=== PATIENT | male | born 1955 | race Caucasian/White ===

== ENCOUNTER → 2016-08-11 | Outpatient (CLI) | payer OTHER ==
--- NOTE | 2016-08-11 15:13 | REP ---
MR CERVICAL SPINE WITHOUT AND WITH CONTRAST: HISTORY: Paresthesias. Contrast: ProHance 12 mL. A small left paracentral and intraforaminal disc protrusion with associated osteophyte formation is present at the C2-3 level. There is minimal effacement of the thecal sac without spinal cord compression. Bilateral uncinate process and left facet hypertrophy are present. These findings produce mild and moderate narrowing of the right and left C2 neural foramina respectively. A disc bulge with associated osteophyte formation is present at the C3-4 level. There is moderate effacement of the thecal sac without spinal cord compression. Bilateral uncinate process hypertrophy is present. This produces moderate narrowing of the C3 neural foramina. A disc bulge with associated osteophyte formation is present at the C4-5 level. There is moderate spinal cord compression. Bilateral uncinate process and left facet hypertrophy are present. These findings produce moderate and severe narrowing of the right and left C4 neural foramina respectively. A disc bulge with associated osteophyte formation is present at the C5-6 level. There is moderate spinal cord compression. Bilateral uncinate process hypertrophy is present. This produces severe narrowing of the C5 neural foramina. A disc bulge and small left paracentral disc protrusion with associated osteophyte formation are present at the C6-7 level. There is moderate effacement of the thecal sac without spinal cord compression. Bilateral uncinate process hypertrophy is present. This produces moderate narrowing of the C6 neural foramina. A disc bulge and small left paracentral and intraforaminal disc protrusion with associated osteophyte formation are present at the C7-T1 level. There is mild effacement of the thecal sac without spinal cord compression. Bilateral uncinate process hypertrophy is present. There is mild and moderate narrowing of the right and left C7 neural foramina respectively. A disc bulge is present at the T1-2 level. There is minimal effacement of the thecal sac without spinal cord compression. The T1 neural foramina are patent on sagittal images. There is no other disc bulge or herniation. The remaining neural foramina are patent. The spinal cord is normal I signal intensity. There is no intradural extramedullary lesion. The C3-4 through C7-T1 intervertebral discs are decreased in height consistent with disc degeneration. Normal signal intensity is present in the cervical vertebral bodies. IMPRESSION: There is cervical spondylosis at the C2-3 through C7-T1 levels most significant at the C4-5 and C5-6 levels where there is moderate spinal cord compression. Signed by Adin Espana MD 08/11/2016 03:17 P
== END ==
LOC: M RAD 12:47
PROVIDERS: ATTEND Orthopaedic Surgery
DX: M43.02 Spondylolysis, cervical region (principal); R20.0 Anesthesia of skin
CPT/HCPCS: 72156; A9576

== ENCOUNTER → 2016-11-24 | Outpatient (REF) | payer OTHER ==
[2016-11-24 13:11] LABS: BASO % 0.6 % (0.0-1.0); EOS # 0.5 K/mm3 (0.0-0.50); EOS % 8.3 % (0.0-3.0); LARGE UNSTAINED CELL # 0.2 K/mm3 (0.0-0.4); LARGE UNSTAINED CELL % 3.4 % (0.0-4.0); LYMPH # 1.6 K/mm3 (1.5-4.5); LYMPH % 26.5 % (24.0-44.0); MEAN CORPUSCULAR HEMOGLOBIN 30.6 pg (27.0-33.0); MEAN CORPUSCULAR HGB CONC 32.6 g/dl (32.0-36.5); MEAN CORPUSCULAR VOLUME 93.8 fl (80.0-96.0); MONO # 0.3 K/mm3 (0.0-0.8); MONO % 5.1 % (0.0-5.0); NEUTROPHILS # 3.4 K/mm3 (1.8-7.7); NEUTROPHILS % 56.1 % (36.0-66.0); PLATELET COUNT, AUTOMATED 206 k/mm3 (150-450); RED CELL DISTRIBUTION WIDTH 14.6 % (11.5-14.5); WHITE BLOOD COUNT 6.1 K/mm3 (4.0-10.0)
[2016-11-24 13:25] LABS: FOLATE 9.6 NG/ML; VITAMIN B12 LEVEL 318 PG/ML
[2016-11-24 13:30] LABS: ALBUMIN 4.1 GM/DL (3.2-5.2); ALBUMIN/GLOBULIN RATIO 1.41 (1.00-1.93); ALKALINE PHOSPHATASE 66 U/L (45-117); ALT/SGPT 14 U/L (12-78); ANION GAP 8 MEQ/L (8-16); AST/SGOT 16 U/L (15-37); BILIRUBIN,TOTAL 0.3 MG/DL (0.2-1.0); BLOOD UREA NITROGEN 15 MG/DL (7-18); CALCIUM LEVEL 8.5 MG/DL (8.5-10.1); CARBON DIOXIDE LEVEL 28 MEQ/L (21-32); CHLORIDE LEVEL 105 MEQ/L (98-107); CHOLESTEROL LEVEL 233 MG/DL (<200); CREATININE FOR GFR 0.97 MG/DL (0.70-1.30); FREE T4 1.46 NG/DL (0.76-1.46); GLOMERULAR FILTRATION RATE > 60.0 (>56); GLUCOSE, FASTING 106 MG/DL (70-105); POTASSIUM SERUM 3.9 MEQ/L (3.5-5.1); SODIUM LEVEL 141 MEQ/L (136-145); TRIGLYCERIDES LEVEL 92 MG/DL (<150)
== END ==
LOC: M SFHCADAM 08:44
PROVIDERS: ATTEND Physician Assistant Medical
DX: E03.9 Hypothyroidism, unspecified (principal); F17.200 Nicotine dependence, unspecified, uncomplicated; F41.9 Anxiety disorder, unspecified

== ENCOUNTER 2017-03-01 09:21 | Emergency (ER) | payer OTHER ==
[~2017-03-01] VITALS: Ht 160 cm; Wt 56.2 kg
[2017-03-01] MEDS ORDERED: ROPI0.5T PO (09:38)
[2017-03-01] MEDS ORDERED: TRAM50TA2 PO (09:38)
[2017-03-01] MEDS ORDERED: CITA10TA5 PO (09:38)
[2017-03-01] MEDS ORDERED: TAB-TAB PO (09:38)
[2017-03-01] MEDS ORDERED: TRAZ-136 PO (09:38)
[2017-03-01] MEDS ORDERED: MELO15TA4 PO (09:38)
[2017-03-01] MEDS ORDERED: LEVO200T4 PO (09:38)
[2017-03-01] MEDS: NAPROXEN 250 MG TAB PO ONE (10:06)
[2017-03-01 10:41] VITALS: BP 140/73
--- NOTE | 2017-03-01 10:59 | REP ---
Right knee five views : There is no fracture or dislocation. Mineralization and joint spaces are normal. There are no calcifications or foreign bodies. Impression: Negative right knee . Signed by Dank Kee MD 03/01/2017 10:50 A
[2017-03-01] MEDS ORDERED: NAPR250T4 PO (11:07)
== END 2017-03-01 11:12 | disposition home or self-care (01) ==
LOC: M ED 09:21
DX: S80.01XA Contusion of right knee, initial encounter (principal); W18.09XA Striking against other object with subsequent fall, initial encounter; Y92.89 Other specified places as the place of occurrence of the external cause; Y93.89 Activity, other specified; Y99.0 Civilian activity done for income or pay; G89.29 Other chronic pain; F41.9 Anxiety disorder, unspecified; F17.200 Nicotine dependence, unspecified, uncomplicated; Z90.89 Acquired absence of other organs; Z87.39 Personal history of other diseases of the musculoskeletal system and connective tissue; Z79.899 Other long term (current) drug therapy

== ENCOUNTER → 2017-03-31 | Outpatient (REF) | payer OTHER ==
[~2017-03-31] MED LIST: CITA10TA5 PO; LEVO200T4 PO; MELO15TA4 PO; NAPR250T4 PO; ROPI0.5T PO; TAB-TAB PO; TRAM50TA2 PO; TRAZ-136 PO
[2017-03-31 20:17] LABS: FREE T4 0.81 NG/DL (0.76-1.46)
== END ==
LOC: M SFHCADAM 14:46
PROVIDERS: ATTEND Physician Assistant Medical
DX: E03.9 Hypothyroidism, unspecified (principal)

== ENCOUNTER → 2017-04-06 | Outpatient (CLI) | payer OTHER ==
[~2017-04-06] MED LIST changes: +E-Z-PAQUE 96% w/w SUSP 176GM BTL As Ordered ONE
--- NOTE | 2017-04-07 13:53 | REP ---
Small bowel follow-through The procedure was performed under the direct supervision of Dr. Duvall. The images were reviewed with Dr. Duvall. The dyeing machine feeder film shows no organomegaly or pathological masses. The intestinal gas pattern is nonspecific. There are vascular calcifications identified. There are degenerative changes of the spine. Liquid barium was administered and the barium column was followed through the small bowel to the level of the terminal ileum. Small bowel transit time is approximately 140 minutes . During fluoroscopy gentle palpation shows all loops are freely movable and pliable. There are no fixed or angulated loops. The small bowel mucosal pattern is normal in course and caliber. There is no transition to suggest a partial small bowel obstruction. Spot filming of the terminal ileum shows it to be unremarkable. Impression: Small bowel follow-through examination within normal limits. 57 seconds of fluoro time was utilized for this procedure. Reviewed by NALINI Mae 04/06/2017 05:30 PSigned by Dank Duvall MD 04/07/2017 01:43 P
== END ==
LOC: M RAD 08:22
PROVIDERS: ATTEND Physician Assistant Medical
DX: R19.5 Other fecal abnormalities (principal); D64.9 Anemia, unspecified

== ENCOUNTER 2017-04-09 11:04 | Outpatient (CLI) | payer OTHER ==
[~2017-04-09] VITALS: Ht 157.5 cm; Wt 59.0 kg
[~2017-04-09 11:04] MED LIST changes: -E-Z-PAQUE 96% w/w SUSP 176GM BTL As Ordered ONE; +NS 1,000 ML IV ONE
--- NOTE | 2017-04-09 12:36 | ROOR ---
Patient Name: Román Melgoza Procedure Date: 04/09/2017 12:26 PM Date of : 1955 Age: 61 Room: [facility] Gender: Male Note Status: Finalized Procedure: Upper GI endoscopy Indications: Iron deficiency anemia Providers: French DAMON MD Referring MD: ASHIA Li Requesting Provider: Medicines: Monitored Anesthesia Care Complications: No immediate complications. Procedure: Pre-Anesthesia Assessment: - The heart rate, respiratory rate, oxygen saturations, blood pressure, adequacy of pulmonary ventilation, and response to care were monitored throughout the procedure. The Endoscope was introduced through the mouth, and advanced to the second part of duodenum. The upper GI endoscopy was accomplished without difficulty. The patient tolerated the procedure well. Findings: The esophagus was normal. The stomach was normal. The examined duodenum was normal. Impression: - Normal esophagus. - Normal stomach. - Normal examined duodenum. - No specimens collected. Recommendation: - Continue present medications. - Perform a colonoscopy. French Damon MD French DAMON MD 04/09/2017 12:36:03 PM This report has been signed electronically. Number of Addenda: 0 Note Initiated On: 04/09/2017 12:26 PM Estimated Blood Loss: Estimated blood loss: none.
[2017-04-09] MEDS ORDERED: PROPOFOL 200 MG/20 ML VIAL As Ordered ONE (12:42)
[2017-04-09] MEDS ORDERED: LIDOCAINE 2% INJ 100 MG/5 ML SDV (FOR ANES.) As Ordered ONE (12:42)
--- NOTE | 2017-04-09 12:51 | ROOR ---
Patient Name: Román Melgoza Procedure Date: 04/09/2017 12:27 PM Date of : 1955 Age: 61 Room: [facility] Gender: Male Note Status: Finalized Procedure: Colonoscopy Indications: Iron deficiency anemia Providers: French DAMON MD Referring MD: ASHIA Li Requesting Provider: Medicines: Monitored Anesthesia Care Complications: No immediate complications. Procedure: Pre-Anesthesia Assessment: - The heart rate, respiratory rate, oxygen saturations, blood pressure, adequacy of pulmonary ventilation, and response to care were monitored throughout the procedure. The Colonoscope was introduced through the anus and advanced to the cecum, identified by appendiceal orifice and ileocecal valve. The colonoscopy was performed with difficulty due to poor bowel prep. Successful completion of the procedure was aided by lavage. The patient tolerated the procedure well. The quality of the bowel preparation was poor. Findings: The perianal and digital rectal examinations were normal. (Colon Prep was POOR, Inadequate Visualisation) The colon is grossly normal without large tumors or obstructing lesions. Unable to perform adequate detail examination. Small lesions may have been missed. Impression: - Preparation of the colon was poor. - Colon Prep was POOR, Inadequate Visualisation - The colon is grossly normal without large tumors or obstructing lesions. Unable to perform adequate detail examination. Small lesions may have been missed. - No specimens collected. Recommendation: - Repeat colonoscopy at the next available appointment because the bowel preparation was poor. - My office will call you to reschedule the procedure. French Damon MD French DAMON MD 04/09/2017 12:50:58 PM This report has been signed electronically. Number of Addenda: 0 Note Initiated On: 04/09/2017 12:27 PM Estimated Blood Loss: Estimated blood loss: none.
[2017-04-09 13:25] VITALS: BP 144/77
== END 2017-04-09 13:36 | disposition home or self-care (01) ==
LOC: M OPP 11:04
PROVIDERS: ATTEND Internal Medicine Gastroenterology
DX: D50.9 Iron deficiency anemia, unspecified (principal); R19.5 Other fecal abnormalities; I25.2 Old myocardial infarction; E03.9 Hypothyroidism, unspecified; E78.5 Hyperlipidemia, unspecified; R23.3 Spontaneous ecchymoses; M19.90 Unspecified osteoarthritis, unspecified site; G25.81 Restless legs syndrome; M54.2 Cervicalgia; M25.60 Stiffness of unspecified joint, not elsewhere classified; F41.9 Anxiety disorder, unspecified; G62.9 Polyneuropathy, unspecified; Z86.73 Personal history of transient ischemic attack (TIA), and cerebral infarction without residual deficits; R06.2 Wheezing; J45.909 Unspecified asthma, uncomplicated; F17.210 Nicotine dependence, cigarettes, uncomplicated; Z88.8 Allergy status to other drugs, medicaments and biological substances; Z79.899 Other long term (current) drug therapy

== ENCOUNTER 2017-04-24 07:55 | Outpatient (CLI) | payer OTHER ==
[~2017-04-24] VITALS: Ht 157.5 cm; Wt 56.2 kg
[~2017-04-24 07:55] MED LIST changes: -NS 1,000 ML IV ONE
[2017-04-24] MEDS ORDERED: NS 1,000 ML IV ONE (08:45)
[2017-04-24] MEDS ORDERED: PROPOFOL 200 MG/20 ML VIAL As Ordered ONE (09:56)
--- NOTE | 2017-04-24 10:06 | ROOR ---
Patient Name: Román Melgoza Procedure Date: 04/24/2017 9:40 AM Date of : 1955 Age: 61 Room: [facility] Gender: Male Note Status: Finalized Procedure: Colonoscopy Indications: , Heme positive stool. (inadequate prep on previous colonoscopy) Providers: French DAMON MD Referring MD: ASHIA Li Requesting Provider: Medicines: Monitored Anesthesia Care Complications: No immediate complications. Procedure: Pre-Anesthesia Assessment: - The heart rate, respiratory rate, oxygen saturations, blood pressure, adequacy of pulmonary ventilation, and response to care were monitored throughout the procedure. The Colonoscope was introduced through the anus and advanced to the cecum, identified by appendiceal orifice and ileocecal valve. The colonoscopy was performed without difficulty. The patient tolerated the procedure well. The quality of the bowel preparation was good. Findings: The perianal and digital rectal examinations were normal. A 6 mm polyp was found in the ileocecal valve. The polyp was sessile. The polyp was removed with a cold snare. Resection and retrieval were complete. The exam was otherwise normal throughout the examined colon. Impression: - (Exam: Complete, Visualisation/Prep: good.) - One 6 mm polyp at the ileocecal valve, removed with a cold snare. Resected and retrieved. - The colonoscopy was otherwise normal on direct and retroflexion views. Recommendation: - Repeat colonoscopy in 3 years for surveillance. French Damon MD French DAMON MD 04/24/2017 10:05:34 AM This report has been signed electronically. Number of Addenda: 0 Note Initiated On: 04/24/2017 9:40 AM Estimated Blood Loss: Estimated blood loss: none.
[2017-04-24 10:39] VITALS: BP 119/57
== END 2017-04-24 10:50 | disposition home or self-care (01) ==
LOC: M OPP 07:55
PROVIDERS: ATTEND Internal Medicine Gastroenterology
DX: R19.5 Other fecal abnormalities (principal); D12.0 Benign neoplasm of cecum; E78.5 Hyperlipidemia, unspecified; E03.9 Hypothyroidism, unspecified; D64.9 Anemia, unspecified; M54.9 Dorsalgia, unspecified; F41.9 Anxiety disorder, unspecified; G25.81 Restless legs syndrome; J45.909 Unspecified asthma, uncomplicated; R06.83 Snoring; F17.210 Nicotine dependence, cigarettes, uncomplicated; Z88.8 Allergy status to other drugs, medicaments and biological substances; Z79.899 Other long term (current) drug therapy

== ENCOUNTER → 2017-06-08 | Outpatient (CLI) | payer OTHER ==
--- NOTE | 2017-06-08 14:06 | REP ---
Clinical: Spondylosis. Technique: AP, lateral, bilateral oblique and coned-down views of the lumbosacral spine. Comparison: MRI dated 06/29/2015. Findings: Advanced multilevel degenerative disc osteophyte complexes are appreciated including marginal osteophytes, endplate sclerosis, and hypertrophic facet changes throughout the lumbosacral spine. Chronic grade II anterolisthesis at the L5-S1 level with chronic spondylolysis is similar to MRI findings. No acute fracture / compression injury or subluxation noted. Impression: Advanced multilevel degenerative disc osteophyte complexes along with grade II chronic spondylolysis and spondylolisthesis at L5-S1. Signed by Miah Valles MD 06/08/2017 01:58 P
--- NOTE | 2017-06-08 14:18 | REP ---
CERVICAL SPINE SERIES: Full cervical spine series performed with 10 views obtained including flexion and extension lateral views. There is no compression fracture. There is slight anterior listhesis of C2 on C3 of about 2 mm which increases to 3 mm with flexion. There is anterior spondylolisthesis of C3 on C4 of about 6 mm which is fixed with flexion and extension. There is mild retrolisthesis of C3 on C4 of about 2 mm which appears relatively fixed. There are large spurs anteriorly at C3 through C6 with mild spurring of C7. There is also mild posterior osteophytic ridging of C4 through C7. There is mild disc space narrowing and subchondral sclerosis of C3-4. There is severe narrowing and subchondral sclerosis with vacuum at C4-5 and C5-6. There is mild narrowing at C6-7. There is diffuse narrowing, sclerosis, and spurring at the posterior facet joints. Compared to the prior study of 04/17/2016, the anterior listhesis of C3 on C4 is new, and there is an increase in the degree of disc space narrowing at C5-6. Uncovertebral and facet spurring appear to cause mild to moderate foraminal narrowing at C3-4 on the left and mild narrowing at C6-7 on the left, with mild to moderate foraminal narrowing of all of the cervical foramina on the right. IMPRESSION: Arthritic changes as discussed in detail above, with progression since prior study of 04/17/2016. Signed by Dank Duvall MD 06/08/2017 04:09 P
== END ==
LOC: M RAD 12:53
PROVIDERS: ATTEND Neurological Surgery
DX: M47.892 Other spondylosis, cervical region (principal)

== ENCOUNTER → 2017-06-26 | Outpatient (REF) | payer OTHER ==
[2017-06-26 19:45] LABS: BASO # 0.1 10^3/uL (0.0-0.2); BASO % 0.8 % (0.0-1.0); EOS # 0.4 10^3/uL (0.0-0.50); EOS % 6.7 % (0.0-3.0); IMMATURE GRANULOCYTE % 0.3 % (0-0); LYMPH # 2.1 10^3/uL (1.5-4.5); LYMPH % 32.8 % (24.0-44.0); MEAN CORPUSCULAR HEMOGLOBIN 29.6 pg (27.0-33.0); MEAN CORPUSCULAR HGB CONC 33.3 g/dl (32.0-36.5); MEAN CORPUSCULAR VOLUME 88.8 fl (80.0-96.0); MONO # 0.4 10^3/uL (0.0-0.8); MONO % 6.9 % (0.0-5.0); NEUTROPHILS # 3.4 10^3/uL (1.8-7.7); NEUTROPHILS % 52.5 % (36.0-66.0); PLATELET COUNT, AUTOMATED 197 10^3/uL (150-450); RED CELL DISTRIBUTION WIDTH 14.3 % (11.5-14.5); WHITE BLOOD COUNT 6.4 10^3/uL (4.0-10.0)
[2017-06-26 20:10] LABS: FOLATE 10.1 NG/ML; VITAMIN B12 LEVEL 680 PG/ML
[2017-06-26 20:11] LABS: ALBUMIN 3.7 GM/DL (3.2-5.2); ALBUMIN/GLOBULIN RATIO 1.16 (1.00-1.93); ALKALINE PHOSPHATASE 64 U/L (45-117); ALT/SGPT 17 U/L (12-78); ANION GAP 7 MEQ/L (8-16); AST/SGOT 14 U/L (7-37); BILIRUBIN,TOTAL 0.2 MG/DL (0.2-1.0); BLOOD UREA NITROGEN 14 MG/DL (7-18); CALCIUM LEVEL 8.8 MG/DL (8.8-10.2); CARBON DIOXIDE LEVEL 30 MEQ/L (21-32); CHLORIDE LEVEL 107 MEQ/L (98-107); CREATININE FOR GFR 0.84 MG/DL (0.70-1.30); FERRITIN 61 NG/ML (26-388); FREE T4 0.86 NG/DL (0.76-1.46); GLOMERULAR FILTRATION RATE > 60.0 (>49); GLUCOSE, FASTING 108 MG/DL (80-110); PERCENT SATURATION 22.3 % (19.7-50.0); POTASSIUM SERUM 4.4 MEQ/L (3.5-5.1); SODIUM LEVEL 144 MEQ/L (136-145); TOTAL IRON BINDING CAPACITY 264 UG/DL (250-450); TOTAL PROTEIN 6.9 GM/DL (6.4-8.2)
== END ==
LOC: M SFHCADAM 11:48
PROVIDERS: ATTEND Physician Assistant Medical
DX: E03.9 Hypothyroidism, unspecified (principal); E55.9 Vitamin D deficiency, unspecified; D64.9 Anemia, unspecified